=== PATIENT | female | born 1965 | race Two or more races ===

== ENCOUNTER 2016-12-08 21:12 | Emergency (ER) | payer MEDICAID ==
[~2016-12-08] VITALS: Ht 121.9 cm; Wt 81.6 kg
[2016-12-08 21:40] VITALS: BP 145/86
[2016-12-08] MEDS ORDERED: HYDROCODONE/APAP 5/325MG 1 EACH TABLET ONE (21:58)
[2016-12-08] MEDS ORDERED: NAPROXEN 250 MG TABLET ONE (21:58)
[2016-12-08] MEDS ORDERED: IBUPROFEN 600 MG TABLET PO STA (21:59)
[2016-12-08] MEDS ORDERED: HYDROCODONE/APAP 5/325MG 1 EACH TABLET PO ONE (22:00)
[2016-12-08] MEDS ORDERED: IBUPROFEN 600 MG TABLET PO ONE (22:01)
[2016-12-08] MEDS: NAPROXEN 500 MG TABLET PO STA ×2 (22:03→22:04)
== END 2016-12-08 22:39 | disposition home or self-care (01) ==
LOC: ER 21:16
DX: S67.02XA Crushing injury of left thumb, initial encounter (principal); S67.191A Crushing injury of left index finger, initial encounter; W23.0XXA Caught, crushed, jammed, or pinched between moving objects, initial encounter; Y93.89 Activity, other specified; Y92.89 Other specified places as the place of occurrence of the external cause; Y99.9 Unspecified external cause status
CPT/HCPCS: 73130; 99284; A4606; Z7610

== ENCOUNTER 2017-04-07 21:19 | Emergency (ER) | payer MEDICAID ==
[~2017-04-07] VITALS: Ht 154.9 cm; Wt 62.6 kg
--- NOTE | 2017-04-07 21:19 | NUR ---
BIBSELF C/O R SIDE FACIAL TINGLING X TUESDAY WITH NO RADIATION. NO SOB OR PAIN NOTED AT THIS TIME WITH FAMILY AT BEDSIDE. A/OX4 GERMAN SPEAKING VSS NAD. WILL CONTINUE TO MONITOR FOR ANY CHANGES DURING THE SHIFT
--- NOTE | 2017-04-07 22:15 | NUR ---
ER MD MAZA AT BEDSIDE FOR EVAL
[2017-04-07] MEDS ORDERED: SUMATRIPTAN SUCCINATE 6 MG/0.5 ML VIAL SQ ONE ×2 (22:30→23:02)
[2017-04-07] MEDS ORDERED: METOCLOPRAMIDE HCL 10 MG/2 ML VIAL IV ONE (22:30)
[2017-04-07] MEDS ORDERED: IV NS 0.9% 1,000 ML BAG IV ONE (22:30)
--- NOTE | 2017-04-07 22:39 | NUR ---
EKG AT BEDSIDE
[2017-04-07 22:51] LABS: BASOPHILS # (AUTO) 0.1 /CMM (0.0-0.2); BASOPHILS % (AUTO) 1.4 % (0.0-2.0); EOSINOPHILS # (AUTO) 0.3 /CMM (0.0-0.7); EOSINOPHILS % (AUTO) 3.8 % (0.0-6.0); HEMATOCRIT 38 % (33-45); HEMOGLOBIN 12.8 g/dL (11.5-14.8); LYMPHOCYTES # (AUTO) 2.5 /CMM (0.8-4.8); LYMPHOCYTES % (AUTO) 26.9 % (20.0-44.0); MEAN CORPUSCULAR HEMOGLOBIN 29 PG (26.0-33.0); MEAN CORPUSCULAR HGB CONC 34 g/dl (31.0-36.0); MEAN CORPUSCULAR VOLUME 85 fL (82-100); MONOCYTES # (AUTO) 0.7 /CMM (0.1-1.30); MONOCYTES % (AUTO) 7.2 % (2.0-12.0); NEUTROPHILS # (AUTO) 5.5 /CMM (1.8-8.9); NEUTROPHILS % (AUTO) 60.7 % (43.0-81.0); PLATELET COUNT (AUTO) 331 /CMM (150-450); RDW COEFFICIENT OF VARIATION 13.3 (11.5-15.0); WHITE BLOOD COUNT (AUTO) 9.1 K/uL (4.3-11.0)
[2017-04-07 22:54] LABS: APPEARANCE,URINE SL CLOUDY (CLEAR); BILIRUBIN,URINE NEGATIVE (NEGATIVE); BLOOD, URINE NEGATIVE Ery/uL (NEGATIVE); COLOR,URINE YELLOW (YELLOW); KETONES,URINE NEGATIVE (NEGATIVE); LEUKOCYTE ESTERASE ,URINE 1+ (NEGATIVE); NITRITE, URINE POSITIVE (NEGATIVE); PROTEIN,URINE NEGATIVE (NEGATIVE); UGLUCOSE NEGATIVE (NEGATIVE); UROBILINOGEN,URINE 0.2 EU/dL (0.2)
[2017-04-07] MEDS ORDERED: METOCLOPRAMIDE HCL 10 MG/10 ML UDC ONE (22:58)
[2017-04-07] MEDS ORDERED: METOCLOPRAMIDE HCL 10 MG/2 ML VIAL ONE (23:02)
[2017-04-07 23:03] LABS: CALCIUM, SERUM 9.1 mg/dL (8.5-10.1); CARBON DIOXIDE 28 mmol/L (21-32); CHLORIDE 104 mmol/L (98-107); CREATININE 0.5 mg/dL (0.6-1.3); GLUCOSE 89 mg/dL (74-106); POTASSIUM 3.6 mmol/L (3.5-5.1); SODIUM SERUM 141 mmol/L (136-145); UREA NITROGEN, BLOOD 12 mg/dL (7-18)
[2017-04-07 23:09] LABS: ALANINE AMINOTRANSFERASE 58 U/L (12-78); ALBUMIN 3.5 g/dL (3.4-5.0); ALKALINE PHOSPHATASE 165 U/L (46-116); ASPARTATE AMINOTRANSFERASE 40 U/L (15-37); BILIRUBIN,DIRECT 0.1 mg/dL (0.0-0.2); BILIRUBIN,TOTAL 0.2 mg/dL (0.2-1.0); TOTAL PROTEIN, SERUM 8.4 g/dL (6.4-8.2)
--- NOTE | 2017-04-07 23:09 | NUR ---
[employer] PROFESSIONAL AT BEDSIDE
[2017-04-07 23:11] LABS: TROPONIN I < 0.017 ng/mL (0.00-0.056)
--- NOTE | 2017-04-07 23:23 | NUR ---
PT BACK FORM CT SCAN
[2017-04-07 23:27] LABS: BACTERIA,URINE Many /HPF (None Seen); RBC,URINE 0-2 /HPF (0-2); SQUAMOUS EPITHELIAL CELL,UR Few /HPF (None Seen)
[2017-04-08 00:27] VITALS: BP 123/76
== END 2017-04-08 00:28 | disposition home or self-care (01) ==
LOC: ER 21:21
DX: G43.909 Migraine, unspecified, not intractable, without status migrainosus (principal); N39.0 Urinary tract infection, site not specified
CPT/HCPCS: 36415; 70450-TC; 80048-TC; 80076-TC; 81000-TC; 84484-TC; 85025-TC; 87086-TC; 87186-TC; A4606; J2765; J3030; J7030; J8597; Z7610

== ENCOUNTER 2022-06-06 20:52 | Emergency (ER) | payer MEDICAID ==
[~2022-06-06] VITALS: Ht 157.5 cm; Wt 71.7 kg
--- NOTE | 2022-06-06 22:45 | NUR ---
PATIENT CAME WITH CC OF INJURY TO TOES ON RIGHT FOOT. PATIENT IS AAOX4. ABLE TO MAKE NEEDS KNOWN. PLACED COMFORTABLY IN BED.
[2022-06-06] MEDS ORDERED: IBUPROFEN 600 MG TABLET PO ONE (23:00)
--- NOTE | 2022-06-06 23:30 | NUR ---
XRAY DONE AT BEDSIDE
[2022-06-07] MEDS ORDERED: IBUPROFEN 600 MG TABLET ONE (00:12)
--- NOTE | 2022-06-07 02:00 | NUR ---
Patient discharged to home in stable condition. Written and verbal after care instructions given. Patient verbalizes understanding of instruction.
[2022-06-07 02:56] VITALS: BP 121/71
== END 2022-06-07 02:56 | disposition home or self-care (01) ==
LOC: ER 21:01
DX: M79.674 Pain in right toe(s) (principal)
CPT/HCPCS: 73630-TC